=== PATIENT | female | born 1980 | race Caucasian/White ===

== ENCOUNTER 2019-12-30 11:08 | Emergency (ER) | payer BC, SELFPAY ==
[2019-12-30 11:23] VITALS: BP 197/85; PULSE 71; RESP 18; TEMP 36.9; O2SAT 97; BMI 47.0
--- NOTE | 2019-12-30 11:31 | CT_ITS ---
WS: [id number] CT scan of the abdomen and pelvis without Oral and IV contrast. Additional two-dimensional coronal a nd sagittal reconstruction was performed. 12/30/2019 Clinical Data: right flank pain. Comparison: None. DLP: 2449.[address] scans at [facility] use at least one of these dose optimization techniques: automat ed exposure control; mA and/or kV adjustment per patient size (includes targeted exams where dose is matched to clinical indication); or iterative reconstruction. Findings: The lower lungs show no nodules, masses or effusions. The liver, spleen, adrenal glands and pancreas are normal. There is a gallstone within the gallbladd er. The kidneys show equal bilateral contrast excretion with no cyst or masses. No renal or ureteral calc judith can be seen. No renal pelvic dilatation is present. The abdominal aorta is normal in size. There is a small fat-containing umbilical hernia. No appendicitis or diverticulitis is seen. No abscess, adenopathy, ascites, mass, obstruction or free air is seen. The stomach, small bowel and colon are unremarkable. The bladder is unremarkable. The uterus is normal. No inguinal hernia is seen. The bones of the lower thorax, lumbar spine, pelvis, and hips are normal. CT/CT kidney stone [id number] Impression: 1. Negative for renal or ureteral calculi. 2. Cholelithiasis. 3. Negative for acute intra-abdominal or pelvic abnormalities.
[2019-12-30 11:36] VITALS: BP 205/94; PULSE 66; RESP 18; O2SAT 95
--- NOTE | 2019-12-30 11:42 | ED_ITS ---
HPI - Abdominal Pain General: Chief Complaint: Abdominal Pain Stated Complaint: RIGHT SIDE PAIN Time Seen by Provider: 12/30/19 11:24 Source: patient Mode of arrival: ambulatory Limitations: no limitations History of Present Illness: MD elicited complaint: flank pain Onset (ago): day(s) (1) Pain Consistency: intermittent Location: R flank Severity: severe Quality: stabbing Radiation: RUQ and other (periumbilical) Exacerbating factors: nothing Relieving factors: nothing Associated Symptoms: Reports nausea; Denies chills, dysuria and fever(s) Related Data: Date of Last Menstrual Period: 12/30/19 Review of Systems General: Reports: 10 or more systems reviewed and unremarkable except in HPI and below Const: Denies: fever(s), chills or body aches Eyes: Denies: change in vision or blurry vision ENMT: Denies: throat pain, enlarged tonsils, odynophagia, hoarseness, mouth pain or swelling of lips/tongue Card: Denies: palpitations, irregular heart rhythm, edema or swelling of feet/ankles Resp: Denies: dyspnea, productive cough or non-productive cough GI: Reports: nausea : Denies: flank pain, difficulty voiding, dysuria, urinary frequency, urinary urgency or urinary hesitancy Musc: Denies: neck pain, back pain or extremity swelling Skin/Breast: Denies: rash, pruritus or erythema Neuro: Denies: headache(s), numbness in extremities or weakness in extremities Endo: Denies: polyuria, polydipsia or tired all the time PFSH ED PFSH: Social History Smoking and tobacco status: former smoker Female Reproductive History: Date of last menstrual period: 12/30/19 Physical Exam Const: COMMON NORMALS: no acute distress, average body habitus, patient orien gurdeep x3, no limitations, healthy appearing, alert and well nourished HENMT: COMMON NORMALS: normocephalic, atraumatic and moist oral mucous membran es HEAD & SCALP: normocephalic and atraumatic Eye: COMMON NORMALS: Equal, round and reactive pupils present, EOMs intact bilaterally, conjunctivae normal and no scleral icterus CONJUNCTIVA: Yes conjunctivae normal PUPIL: Yes Equal, round and reactive pupils present Neck/C-Spine: COMMON NORMALS: full ROM, supple, no meningeal signs, no JVD and No carotid bruits Chest: COMMONS NORMALS: normal inspection of the chest and normal palpation of entire chest wall Resp: COMMON NORMALS: normal respiratory effort, No retractions, No use of accessory muscles, clear to auscultation bilaterally and percussion normal AUSCULTATION: clear to auscultation bilaterally PERCUSSION: percussion normal Cardio: COMMON NORMALS: no JVD, regular rate, regular rhythm, S1 normal heart sound present, S2 normal heart sound present, No gallops present (Cardio), No clicks present (Cardio), No murmurs present (Cardio), No rub (Cardio) and Peripheral pulses 2+ throughout RATE: regular rate RHYTHM: regular rhythm HEART SOUNDS: S1 normal heart sound present and S2 normal heart sound present PERIPHERAL PULSES: Peripheral pulses 2+ throughout GI: COMMON NORMALS: Normal to inspection, nondistended, normoactive bowel sounds present, Soft to palpation, non-tender, No hepatosplenomegaly present, no masses and no bruits PALPATION: Yes Soft to palpation and Yes No hepatosplenomegaly present : COMMON NORMALS: Yes no CVA tenderness BLADDER/KIDNEY EXAM: Yes no CVA tenderness Back/Pelvis: COMMON NORMALS: no CVA tenderness Extremity: COMMON NORMALS: normal to inspection, full ROM, capillary refill normal, no calf tenderness and no pedal edema Neuro: COMMON NORMALS: patient oriented x3 SENSORIUM/ORIENTATION: Yes alert MENINGEAL SIGNS: Yes no meningeal signs Skin: COMMON NORMALS: no rashes or lesions noted, no wounds, turgor normal, no jaundice, no petechiae and no mottling GENERAL SKIN EXAM: no rashes or lesions noted and turgor normal Course Reevaluation(s): Reevaluation #1: Discussed her lab and imaging findings with her. She has cholelithiasis but not cholecystitis. We will make a referral for her to be followed in the surgery clinic on an outpatient basis. Will give her a prescription for pain medication. Diet advise given to her. Time: 14:22 Vital Signs: Vital signs: Vital Signs Temperature 98.4 F 12/30/19 11:23 Pulse Rate 57 L 12/30/19 12:33 Respiratory Rate 16 12/30/19 12:33 Blood Pressure 173/98 12/30/19 12:33 Pulse Oximetry 96 12/30/19 12:33 MDM - Abdominal Pain MDM Narrative: Medical decision making narrative: 39-year-old obese female who presents to the emergency department with right flank/right upper quadrant pain. Evaluation in the emergency department reveals that she has cholelithiasis but no evidence of cholecystitis. White cell count is normal, Topete sign negative, mildly elevated liver enzymes. She is set up to follow-up outpatient with a general surgeon for further evaluation and an interval cholecystectomy. She was also given dietary advice and pain medication to be used as needed. Differential Diagnosis: Differential diagnosis abdominal pain: Likely acute appendicitis and calculus of kidney Medical Records: Attestation: I reviewed the patient's medical records. Lab Data: Attestation: I reviewed the patient's lab results. Labs: Lab Results 12/30/19 12/30/19 12/30/19 Range/Units 11:30 11:30 11:47 WBC 9.0 (4.0-10.0) 10^3/ uL RBC 4.69 (4.1-5.3) 10^6/u L Hgb 13.1 (11.5-15.3) g/dL Hct 42.1 (37.0-47.0) % MCV 89.8 (81-99) fL MCH 27.9 L (28.0-34.0) pg MCHC 31.1 (30.0-36.0) g/dL RDW 12.6 (12.1-15.1) % Plt Count 236 (130-400) 10^3/c mm MPV 11.6 H (7.4-10.4) fL Neut % (Auto) 74.6 % Lymph % (Auto) 13.7 % Bee % (Auto) 9.7 % Eos % (Auto) 1.0 % Baso % (Auto) 0.4 % Neut # (Auto) 6.7 (1.8-7.7) 10^3/u L Lymph # (Auto) 1.2 (0.8-4.8) 10^3/u L Bee # (Auto) 0.9 (0.2-0.9) 10^3/u L Eos # (Auto) 0.1 (0.0-0.8) 10^3/u L Baso # (Auto) 0.0 (0.0-0.1) 10^3/u L Nucleated RBC % (a uto) 0 % Nucleated RBCs # 0.0 /100WBC Sodium (136-145) mmol/L Potassium (3.5-5.1) mmol/L Chloride (98-107) mmol/L Carbon Dioxide (22-29) mmol/L Anion Gap (5-19) BUN (6-20) mg/dL Creatinine (0.5-0.9) mg/dL GFR Calculation (90-130) mL/min Glucose (65-115) mg/dL Calculated Osmolal ity (285-295) mOsm/k g Calcium (8.5-10.5) mg/dL Total Bilirubin (0.15-1.2) mg/dL AST (0-32) U/L ALT (0-33) U/L Alkaline Phosphata se (35-105) IU/L Total Protein (6.6-8.7) g/dL Albumin (3.5-5.2) g/dL Globulin (1.3-4.6) g/dL Lipase (13-60) U/L HCG, Qual Negative (Negative) Urine Color Other (Yellow) Urine Appearance Clear (CLEAR) Urine pH 6.5 (5-7) Ur Specific Gravit y 1.005 (1.005-1.030) Urine Protein Neg (Negative) Urine Glucose (UA) Norm (Normal) Urine Ketones Negative (Negative) Urine Blood 3+ H (Negative) Urine Nitrate Negative (Negative) Urine Bilirubin Neg (NEGATIVE) Urine Urobilinogen Norm (Negative) mg/dL Ur Leukocyte Mary ase Negative (Negative) Urine RBC 80-100 H (0-2) /hpf Urine WBC None (0-5) /hpf Ur Squamous Epith Cells 10-15 H (0-5) Urine Bacteria 1+ H (NONE) Urine Mucus Trace 12/30/19 12/30/19 Range/Units 11:47 11:47 WBC (4.0-10.0) 10^3/ uL RBC (4.1-5.3) 10^6/u L Hgb (11.5-15.3) g/dL Hct (37.0-47.0) % MCV (81-99) fL MCH (28.0-34.0) pg MCHC (30.0-36.0) g/dL RDW (12.1-15.1) % Plt Count (130-400) 10^3/c mm MPV (7.4-10.4) fL Neut % (Auto) % Lymph % (Auto) % Bee % (Auto) % Eos % (Auto) % Baso % (Auto) % Neut # (Auto) (1.8-7.7) 10^3/u L Lymph # (Auto) (0.8-4.8) 10^3/u L Bee # (Auto) (0.2-0.9) 10^3/u L Eos # (Auto) (0.0-0.8) 10^3/u L Baso # (Auto) (0.0-0.1) 10^3/u L Nucleated RBC % (a uto) % Nucleated RBCs # /100WBC Sodium 139 (136-145) mmol/L Potassium 4.3 (3.5-5.1) mmol/L Chloride 105 (98-107) mmol/L Carbon Dioxide 24 (22-29) mmol/L Anion Gap 14.3 (5-19) BUN 11 (6-20) mg/dL Creatinine 0.8 (0.5-0.9) mg/dL GFR Calculation 79.0 L (90-130) mL/min Glucose 114 (65-115) mg/dL Calculated Osmolal ity 285 (285-295) mOsm/k g Calcium 9.3 (8.5-10.5) mg/dL Total Bilirubin 0.3 (0.15-1.2) mg/dL AST 49 H (0-32) U/L ALT 62 H (0-33) U/L Alkaline Phosphata se 100 (35-105) IU/L Total Protein 7.0 (6.6-8.7) g/dL Albumin 3.9 (3.5-5.2) g/dL Globulin 3.1 (1.3-4.6) g/dL Lipase 32 (13-60) U/L HCG, Qual (Negative) Urine Color (Yellow) Urine Appearance (CLEAR) Urine pH (5-7) Ur Specific Gravit y (1.005-1.030) Urine Protein (Negative) Urine Glucose (UA) (Normal) Urine Ketones (Negative) Urine Blood (Negative) Urine Nitrate (Negative) Urine Bilirubin (NEGATIVE) Urine Urobilinogen (Negative) mg/dL Ur Leukocyte Mary ase (Negative) Urine RBC (0-2) /hpf Urine WBC (0-5) /hpf Ur Squamous Epith Cells (0-5) Urine Bacteria (NONE) Urine Mucus Imaging Data ^: CT Abd/Pel: Radiologist's impression: [facility] [address] [place] [address] CT Scan Report Signed Patient: Paola Connors #: [id number] : 1980Acct#:[id number] Age/Sex: 39 / FADM Date: 12/30/19 Loc: ERRoom/Bed: Attending Dr: Ordering Provider/Ordering MD: Shon Myrick MD, [facility] Date of Service: 12/30/19 Procedure(s): CT kidney stone [id number] Accession Number(s): [id number] Report Number: [id number] WS: [id number] CT scan of the abdomen and pelvis without Oral and IV contrast. Additional two- dimensional coronal and sagittal reconstruction was performed. 12/30/2019 Clinical Data: right flank pain. Comparison: None. DLP: 2449.[address] scans at [facility] use at least one of these dose optimization techniques: automated exposure control; mA and/or kV adjustment per patient size (includes targeted exams where dose is matched to clinical indication); or iterative reconstruction. Findings: The lower lungs show no nodules, masses or effusions. The liver, spleen, adrenal glands and pancreas are normal. There is a gallstone within the gallbladder. The kidneys show equal bilateral contrast excretion with no cyst or masses. No renal or ureteral calculi can be seen. No renal pelvic dilatation is present. The abdominal aorta is normal in size. There is a small fat-containing umbilical hernia. No appendicitis or diverticulitis is seen. No abscess, adenopathy, ascites, mass, obstruction or free air is seen. The stomach, small bowel and colon are unremarkable. The bladder is unremarkable. The uterus is normal. No inguinal hernia is seen. The bones of the lower thorax, lumbar spine, pelvis, and hips are normal. CT/CT kidney stone [id number] Impression: 1. Negative for renal or ureteral calculi. 2. Cholelithiasis. 3. Negative for acute intra-abdominal or pelvic abnormalities. Dictated By:Erin Chand MD Signed By:Erin Chand MDSigned Date/Time:12/30/19 1222 DD/ 1216 US: Radiologist's impression: [facility] [address] [place] [address] Ultrasound Report Signed Patient: Paola Connors #: [id number] : 1980Acct#:[id number] Age/Sex: 39 / FADM Date: 12/30/19 Loc: ERRoom/Bed: Attending Dr: Ordering Provider/Ordering MD: Shon Myrick MD, [facility] Date of Service: 12/30/19 Procedure(s): US gall bladder 32472 Accession Number(s): [id number] Report Number: [id number] WS: [id number] RIGHT UPPER QUADRANT ULTRASOUND HISTORY: RUQ pain, gall stone on CT, elevated liver enzymes COMPARISON: None available. Liver: 18.0 cm in length. Enlarged liver with diffuse coarsened echotexture. No bile duct dilatation. No mass. Gallbladder: Large amount shadowing from stones in the gallbladder fossa. Very little bowel is identified due to the large stones. Gallbladder is slightly contracted. CBD: 0.4 cm Pancreas: Not visualized. Right kidney: 9.4 cm in length. Normal echogenicity with no mass or hydronephrosis. Aorta and IVC: Unremarkable. No ascites. US/US gall bladder 42459 IMPRESSION: 1. Cholelithiasis and a slightly contracted gallbladder. 2. No bile duct dilatation. 3. Hepatic steatosis and hepatomegaly. Dictated By:Mildred Talbert DO Signed By:Mildred Talbert DOSigned Date/Time:12/30/19 1403 DD/ 1401 Discharge Plan Discharge Patient Disposition: Home, Self-Care Clinical Impression: Elevated blood-pressure reading, without diagnosis of hypertension Cholelithiasis Qualifiers: Cholelithiasis location: gallbladder Cholecystitis presence: without cholecystitis Biliary obstruction: without biliary obstruction Qualified Code(s): K80.20 - Calculus of gallbladder without cholecystitis without obstruction Condition: Stable Prescriptions: New Siren 5-325 mg tablet 1 tab PO Q8H PRN (Reason: pain) Qty: 20 RF: 0 Continued ibuprofen 200 mg Tablet 400 mg PO PRN RF: 0 Discharge Orders: Discharge Order (Routine); Ordered 12/30/19 Ordered By: Shon Myrick Referrals: Lalo Ibrahim MD [Physician] - 01/03/20 1:30 pm Discharge Diet: Low Fat Discharge Activity: Resume usual activity Patient Instructions: Cholelithiasis, Hypertension (ED) Activity Restrictions/Additional Instructions: Return for any new or worsening symptoms. Take the pain medicines as needed for pain. Consume a low-fat diet, this will help with your pain. You have an appointment with the surgeon on 01/03/2020 at 1:30 PM, and she made the appointment as he will give you further instructions on what to do and possibly plan surgery. Your blood pressure is significantly elevated, follow-up with your primary care provider as soon as you can as you may need to be started on some medicine for this. You should also consume a low-salt diet Discharge Date/Time: 12/30/19 15:19 Coding Level of Care Code ED Dairy Technologist for Chg Fwd Exam Comprehensive
[2019-12-30 12:00] LABS: Basophils % 0.4 %; Eosinophils # 0.1 10^3/uL (0.0-0.8); Hematocrit 42.1 % (37.0-47.0); Hemoglobin 13.1 g/dL (11.5-15.3); Lymphocytes # 1.2 10^3/uL (0.8-4.8); Lymphocytes % 13.7 %; Mean Corpuscular HGB Conc 31.1 g/dL (30.0-36.0); Mean Corpuscular Hemoglobin 27.9 pg (28.0-34.0); Mean Corpuscular Volume 89.8 fL (81-99); Mean Platelet Volume 11.6 fL (7.4-10.4); Monocytes # 0.9 10^3/uL (0.2-0.9); Monocytes % 9.7 %; Neutrophils # 6.7 10^3/uL (1.8-7.7); Neutrophils % 74.6 %; Nucleated Red Blood Cells % 0 %; Platelet Count 236 10^3/cmm (130-400); Red Blood Count 4.69 10^6/uL (4.1-5.3); Red Cell Distribution Width 12.6 % (12.1-15.1)
[2019-12-30 12:04] LABS: HCG Qualitative Urine. Negative (Negative)
[2019-12-30 12:05] LABS: Add Urine Microscopic? YES; Bilirubin Urine Neg (NEGATIVE); Blood Urine 3+ (Negative); Glucose Urine UA Norm (Normal); Ketones Urine Negative (Negative); Leukocyte Esterase Urine Negative (Negative); Nitrate Urine Negative (Negative); Protein Urine Neg (Negative); Specific Gravity, Urine 1.005 (1.005-1.030); Urine Appearance Clear (CLEAR); Urine Color Other (Yellow); Urobilinogen Urine Norm (Negative); pH Urine 6.5 (5-7)
[2019-12-30 12:10] LABS: Add Urine Culture? No; Bacteria Urine 1+; Mucus Urine TRACE; RBC Urine 80-100 /hpf (0-2)
[2019-12-30 12:19] LABS: Alanine Aminotransferase 62 U/L (0-33); Albumin Level 3.9 g/dL (3.5-5.2); Alkaline Phosphatase 100 IU/L (35-105); Anion Gap 14.3 (5-19); Aspartate Amino Transferase 49 U/L (0-32); Blood Urea Nitrogen 11 mg/dL (6-20); Calcium 9.3 mg/dL (8.5-10.5); Carbon Dioxide 24 mmol/L (22-29); Chloride 105 mmol/L (98-107); Creatinine Clr Calc Pharmacy 133.5168; Globulin 3.1 g/dL (1.3-4.6); Glucose 114 mg/dL (65-115); Osmolality Calculated 285 mOsm/kg (285-295); Potassium 4.3 mmol/L (3.5-5.1); Sodium 139 mmol/L (136-145); Total Bilirubin 0.3 mg/dL (0.15-1.2)
[2019-12-30 12:33] VITALS: BP 173/98; PULSE 57; RESP 16; O2SAT 96
[2019-12-30 12:55] LABS: Lipase 32 U/L (13-60)
--- NOTE | 2019-12-30 13:14 | US_ITS ---
WS: [id number] RIGHT UPPER QUADRANT ULTRASOUND HISTORY: RUQ pain, gall stone on CT, elevated liver enzymes COMPARISON: None available. Liver: 18.0 cm in length. Enlarged liver with diffuse coarsened echotexture. No bile duct dilatation. No mass. Gallbladder: Large amount shadowing from stones in the gallbladder fossa. Very little bowel is identi fied due to the large stones. Gallbladder is slightly contracted. CBD: 0.4 cm Pancreas: Not visualized. Right kidney: 9.4 cm in length. Normal echogenicity with no mass or hydronephrosis. Aorta and IVC: Unremarkable. No ascites. US/US gall bladder [id number] IMPRESSION: 1. Cholelithiasis and a slightly contracted gallbladder. 2. No bile duct dilatation. 3. Hepatic steatosis and hepatomegaly.
--- NOTE | 2019-12-30 14:30 | DCPLANNER ---
senior property manager was asked to schedule a follow up appointment with Dr. Ibrahim at [facility]. senior property manager called [facility], spoke with Sofia, gave clinic patients information. A follow up appointment was scheduled for Friday, January 03, 2020 at 1:[address] Ibrahim. senior property manager informed ED physician and patient about scheduled appointment.
[2019-12-30 15:18] VITALS: BP 165/98; PULSE 65; RESP 16; O2SAT 98
--- NOTE | 2020-01-07 12:59 | DCPLANNER ---
Patient did attend appointment scheduled for 01.03.20 with [facility].
== END 2019-12-30 15:19 | disposition home or self-care (01) ==
PROVIDERS: Emergency Provider Family Medicine
DX: K80.20 Calculus of gallbladder without cholecystitis without obstruction (principal); R03.0 Elevated blood-pressure reading, without diagnosis of hypertension; Z87.891 Personal history of nicotine dependence
CPT/HCPCS: 12345; 74176; 76705; 80053; 81001; 81025; 83690; 85025; 99283

== ENCOUNTER 2020-01-05 06:16 | Day surgery (SDC) | payer BC, SELFPAY ==
[2020-01-04 12:41] VITALS: BMI 47.0
[2020-01-05] VITALS (7 sets, daily range): BP systolic 116–169; BP diastolic 62–106; PULSE 64–73; RESP 13–18; TEMP 36.3–36.8; O2SAT 95–100
[2020-01-05] MEDS: sodium chloride 0.9% 1,000 ML 30 ML IV (07:09)
--- NOTE | 2020-01-05 07:14 | ANES.PREANE2 ---
Pre-Anesthetic Assessment Pre-Anesthetic Assessment: Height/Weight: Height 1.7 m Weight 136.078 kg Temp Pulse Resp BP Pulse Ox 97.4 F L 64 18 169/106 98 01/05/20 06:57 01/05/20 06:57 01/05/20 06:57 01/05/20 06:57 01/05/20 06:57 Preop Diagnosis: cholelithiasis Proposed Procedure: Operation Date: 01/05/20 07:55 Proposed Procedures p [id number] laparoscopic possible open cholecystectomy K80.20(Not Applicable) - Lalo Ibrahim MD Last intake: Intake Last Liquid Date 01/04/20 Last Liquid Time 19:00 Last Solid Date 01/04/20 Last Solid Time 19:00 Social: Social History: Alcohol (occ) and Tobacco (quit) Exam: Pre-Anes Outpt Exam: alert, oriented x 3, clear to auscultation bilaterally and regular rate & rhythm Airway: Submandibular: WNL Cervical ROM: WNL MP: 2 Dentition: Other (teeth ok) History/ROS: No significant history except as noted Pulmonary: Pulmonary: None reported CV/HEM: CV/HEM: HTN : : None reported Hepatic: Hepatic: None reported GI: GI: GERD (occ) Metabolic: Metabolic: Morbid obesity Musc/skel: Musc/skel: None reported Neuropsych: Neuropsych: None reported Anesthetic Plan: ASA status: 2 Anesthesia: Anesthesia Evaluation and General Risk of > 500 ml blood loss (7ml/kg in children): No Meds/Allergies Current Medications: Current Medications Generic Name Dose Route Start Last Admin Trade Name Freq PRN Reason Stop Dose Admin Sodium Chloride 1,000 mls @ 30 ml s/hr 01/05/20 06:30 01/05/20 07:09 Sodium Chloride 0.9% IV 01/06/20 06:29 30 mls/hr .Q24H RADHA Administration PFSH Anesthesia PFSH: Medical History Benign hypertension Surgical History History of 2x Family History Denies family history of Anesthesia complication Bleeding disorder Social History Smoking and tobacco status: former smoker Alcohol intake: current Alcohol intake frequency: holidays/special occasions only History of recent travel: No Current gender identity: Female Female Reproductive History: Date of last menstrual period: 12/30/19 Data Anesthesia Cardiac Studies: No Data to Display
--- NOTE | 2020-01-05 07:29 | W.PM.OPSUD ---
Surgery/Procedure H&P Update DATE OF PROCEDURE: January 05, 2020 DATE H&P PERFORMED: 01/03/20 H&P UPDATE INFORMATION: I have reviewed H&P completed within last 30 days, I have examined patient prior to procedure and No changes to prior documentation PREOP DIAGNOSIS: cholelithiasis PLANNED PROCEDURE: Operation Date: 01/05/20 07:55 Proposed Procedures p 28851 laparoscopic possible open cholecystectomy K80.20(Not Applicable) - Lalo Ibrahim MD
[2020-01-05] MEDS: ondansetron 2 mg/ML SDV 2 mL 4 MG IVP (08:59)
--- NOTE | 2020-01-05 09:53 | P.OP_ITS ---
Operative Report Date of procedure: January 05, 2020 Pre-op Diagnosis: cholelithiasis Post-op diagnosis: same Procedure Done: Laparoscopic cholecystectomy Pathology: Gallbladder Surgeon: Lalo Ibrahim Anesthesia: General Estimated blood loss (mL): 10 Condition: stable Disposition: PACU Procedure: The patient was taken to the operating room and was intubated under general anesthesia. After the antibiotic had been administered, the abdomen was prepped and draped in a sterile manner. Using a #15 blade, a 1 centimeter infraumbilical curvilinear incision was made and using an open Muer technique the peritoneal cavity was entered. A 10 millimeter port was placed and 15 millimeters of pneumoperitoneum was created. A 10 millimeter, 30 degrees scope was then introduced. Three 5 millimeter ports were placed in the epigastric, midclavicular and the anterior axillary line two fingerbreadths below the costal margin on the right side under the direct visualization. Ratcheted forceps were introduced into the lateral most port and was used to retract the fundus of the gallbladder cephalad and using forceps the infundibulum of the gallbladder was retracted laterally. Using L-hook cautery the peritoneum overlying the Calot's triangle was opened medially and laterally until the cystic duct and the cystic artery were skeletonized. Dissection was carried along the body of the gallbladder and after ensuring critical view of safety, 4 clips applied on the cystic duct and 3 clips applied on the cystic artery and cut leaving, 3 clips on the remaining portion of the duct and 2 clips on the remaining portion of the a rtery. The rest of the gallbladder was dissected off the liver using L-hook cautery. There was no bleeding or bile leaking noted from the gallbladder fossa and the clips appeared to be in place. An EndoCatch bag was introduced to remove the gallbladder. All the ports were removed under direct visualization and there was no bleeding noted from the port sites. The fascia of the umbilicus was closed using [id number] 0 Vicryl sutures and the subcutaneous tissue was approximated using 3-0 Vicryl sutures. The skin at all four ports were closed using 4-0 Monocryl and Dermabond. A total of 10 millimeters of 0.5% Marcaine was infiltrated around the port sites. The patient was stable throughout the procedure.
[2020-01-05] MEDS: scopolamine 1.5 Patch 1 PATCH TRANSDERMA (10:07)
== END 2020-01-05 10:20 | disposition home or self-care (01) ==
PROVIDERS: Visit Provider Surgery
PROC: 0FT44ZZ Resection of Gallbladder, Percutaneous Endoscopic Approach (ICD-10-PCS; CPT 47562; principal; 2020-01-05 07:55)
DX: K80.10 Calculus of gallbladder with chronic cholecystitis without obstruction (principal); Z87.891 Personal history of nicotine dependence; I10 Essential (primary) hypertension; K21.9 Gastro-esophageal reflux disease without esophagitis; E66.01 Morbid (severe) obesity due to excess calories; Z68.42 Body mass index [BMI] 45.0-49.9, adult
CPT/HCPCS: 47562; 12345; 88304; J0690; J1100; J2405; J2704; J2710; J3010; J3490; J7030

== ENCOUNTER → 2020-02-02 10:45 | Outpatient (BNVA) | payer BC, SELFPAY | PROVIDERS: Visit Provider Emergency Medicine | DX: I10 Essential (primary) hypertension (principal); E66.01 Morbid (severe) obesity due to excess calories; Z68.43 Body mass index [BMI] 50.0-59.9, adult | CPT/HCPCS: 80053; 80061; 83880; 84443; 85025 ==

== ENCOUNTER → 2020-04-23 16:35 | Outpatient (BNVA) | payer BC, SELFPAY | PROVIDERS: Visit Provider Nurse Practitioner Family | DX: N23 Unspecified renal colic (principal); N30.00 Acute cystitis without hematuria | CPT/HCPCS: 80053; 81000 ==

== ENCOUNTER → 2020-04-25 11:09 | Outpatient (BNVA) | payer BC, SELFPAY | PROVIDERS: Visit Provider Obstetrics & Gynecology | DX: Z12.4 Encounter for screening for malignant neoplasm of cervix (principal) | CPT/HCPCS: 88175 ==

== ENCOUNTER 2020-06-01 07:12 | Outpatient (CLI) | payer BC, SELFPAY ==
--- NOTE | 2020-06-01 07:30 | MM_ITS ---
WS: [id number] Bilateral screening digital mammogram, 06/01/2020 Clinical Data: Breast Cancer Screening Comparison: None. Findings: The breast parenchymal pattern shows fat replacement. No spiculated masses or clustered calcification s are seen. There are no secondary signs of carcinoma. MM/[place] [id number] Impression: 1. Negative bilateral mammogram with no prior images for review. 2. Recommend annual screening mammograms. BIRADS: 1-Negative FOLLOW UP: 1 Year Follow-up The CAD loading checker was used.
== END 2020-06-01 07:13 | disposition home or self-care (01) ==
LOC: RADSHAW 07:14
PROVIDERS: Visit Provider Obstetrics & Gynecology
DX: Z12.31 Encounter for screening mammogram for malignant neoplasm of breast (principal)
CPT/HCPCS: 77067

== ENCOUNTER → 2020-09-26 09:00 | Outpatient (BNVA) | payer BC, SELFPAY | PROVIDERS: Visit Provider Family Medicine | DX: I10 Essential (primary) hypertension (principal); E66.01 Morbid (severe) obesity due to excess calories; Z68.43 Body mass index [BMI] 50.0-59.9, adult | CPT/HCPCS: 80048 ==

== ENCOUNTER → 2023-02-19 10:31 | Outpatient (BNVA) | payer BC, SELFPAY | PROVIDERS: Visit Provider Obstetrics & Gynecology | DX: N94.6 Dysmenorrhea, unspecified (principal); N85.2 Hypertrophy of uterus | CPT/HCPCS: 76830 ==

== ENCOUNTER → 2023-02-28 10:30 | Outpatient (BNVA) | payer BC, SELFPAY | PROVIDERS: Visit Provider Obstetrics & Gynecology | DX: Z12.4 Encounter for screening for malignant neoplasm of cervix (principal) | CPT/HCPCS: 87624 ==

== ENCOUNTER → 2023-03-21 09:39 | Outpatient (BNVA) | payer BC, SELFPAY | PROVIDERS: PCP Family Medicine; Referring Provider Nurse Practitioner Family; Visit Provider Nurse Practitioner Family | DX: L40.0 Psoriasis vulgaris (principal) | CPT/HCPCS: 80048; 80076; 85025; 86480; 86706; 86803; 87340 ==

== ENCOUNTER 2024-05-31 08:49 | Outpatient (CLI) | payer BC, SELFPAY ==
[2024-05-31 10:01] LABS: Alanine Aminotransferase 34 U/L (0-33); Albumin Level 4.1 g/dL (3.5-5.2); Alkaline Phosphatase 111 U/L (35-105); Anion Gap 12.1 (5-19); Aspartate Amino Transferase 20 U/L (0-32); Blood Urea Nitrogen 12 mg/dL (6-20); Carbon Dioxide 27 mmol/L (22-29); Chloride 104 mmol/L (98-107); Globulin 3.3 g/dL (1.3-4.6); Glomerular Filtration Rate 67.7 mL/min (90-130); Glucose 100 mg/dL (65-115); Osmolality Calculated 286 mOsm/kg (285-295); Potassium 5.1 mmol/L (3.5-5.1); Sodium 138 mmol/L (136-145); Total Bilirubin 0.2 mg/dL (0.15-1.2); Total Protein 7.4 g/dL (6.6-8.7)
== END 2024-05-31 08:50 | disposition home or self-care (01) ==
PROVIDERS: PCP Family Medicine; Visit Provider Nurse Practitioner Family
DX: L40.0 Psoriasis vulgaris (principal)
CPT/HCPCS: 36415; 80053

== ENCOUNTER 2025-05-25 10:40 | Outpatient (CLI) | payer BC, SELFPAY | END 2025-05-25 10:41 | disposition home or self-care (01) | PROVIDERS: PCP Family Medicine; Visit Provider Nurse Practitioner Family | DX: L40.0 Psoriasis vulgaris (principal) | CPT/HCPCS: 36415; 86480 ==